=== PATIENT | female | born 1965 | race Caucasian/White ===

== ENCOUNTER 2018-08-08 14:43 | Inpatient (IN) | payer MEDICAID ==
[~2018-08-08] VITALS: Ht 170.2 cm; Wt 103.8 kg
[~2018-08-08 14:43] MED LIST: ALPR-475 PO; AMIT10TA PO; OXYC-302 PO; TIOT18CA INH
[2018-08-08] MEDS ORDERED: ALBUTEROL/IPRATROPIUM 2.5MG/0.5MG, 3 ML NPPB ONE (15:00)
[2018-08-08] MEDS ORDERED: ALBUTEROL/IPRATROPIUM 2.5MG/0.5MG, 3 ML ONE (15:23)
--- NOTE | 2018-08-08 15:30 | NUR ---
PT ON BP CUFF, PULSE OX. MEDS GIVEN PER ERP ORDER. LABS DRAWN. RT AT BS. PT MOANING AND CRYING. PT STATES BREATHING BOTHERS HER THE MOST. PT UPDATED ON POC, IMPORTANCE OF BREATHING SLOWER. PT STATES HX OF ANXIETY AND "SOCIAL SITUATIONS" THAT HAVE BEEN CAUSING INCREASED STRESS. PT MORE CALM FOLLOWING NEB TX, NO MOANING AND CRYING AT THIS TIME. CALL LIGHT WITHIN REACH.
[2018-08-08 15:35] LABS: BASOPHILS # (AUTO) 0.02 x10^3/uL (0-0.1); BASOPHILS % (AUTO) 0 % (0-1); EOSINOPHILS # (AUTO) 0.39 x10^3/uL (0-0.4); EOSINOPHILS % (AUTO) 5 % (1-7); LYMPHOCYTES % (AUTO) 15 % (22-44); MD NO; MEAN CORPUSCULAR HEMOGLOBIN 31.8 pg (27.0-34.8); MEAN CORPUSCULAR VOLUME 93.3 fL (80-100); MONOCYTES # (AUTO) 0.37 x10^3/uL (0.2-0.8); MONOCYTES % (AUTO) 5 % (2-9); NEUTROPHILS # (AUTO) 5.82 x10^3/uL (1.8-6.8); NEUTROPHILS % (AUTO) 75 % (42-75); PLATELET COUNT 150 x10^3/uL (130-400); RED BLOOD COUNT 5.08 x10^6/uL (3.82-5.3); RED CELL DISTRIBUTION WIDTH 13.1 % (9.6-15.2)
[2018-08-08 15:47] LABS: ALBUMIN 3.5 g/dL (3.4-5.0); ANION GAP 6 mmol/L (5-15); CALCIUM 8.6 mg/dL (8.5-10.1); CHLORIDE 106 mmol/L (98-107); CREATININE 0.98 mg/dL (0.55-1.02)
[2018-08-08] MEDS ORDERED: OXYC10TA6 PO (15:59)
[2018-08-08] MEDS ORDERED: ALBU0.63 NEB (15:59)
[2018-08-08] MEDS ORDERED: FLUT1BLS INH (15:59)
[2018-08-08] MEDS ORDERED: ALPR-475 PO (15:59)
[2018-08-08] MEDS ORDERED: SODIUM CHLORIDE FLUSH 10ML SYR IVF ONE (16:00)
[2018-08-08] MEDS ORDERED: hydrALAzine 20 MG/ML, 1ML IVPush PRN (16:30)
[2018-08-08] MEDS ORDERED: ACETAMINOPHEN 325 MG TABLET PO PRN (16:30)
[2018-08-08] MEDS ORDERED: CEFTRIAXONE PMX 1GM/50ML 50 ML IV SCH (16:30)
[2018-08-08] MEDS ORDERED: TIOTROPIUM BROMIDE INH PRN (16:30)
[2018-08-08] MEDS ORDERED: AZITHROMYCIN 500 MG in SODIUM CHLORIDE 0.9% 250 ML IV SCH (16:30)
[2018-08-08] MEDS ORDERED: ENOXAPARIN 40 MG/0.4 ML SQ SCH (16:30)
[2018-08-08] MEDS ORDERED: CEFTRIAXONE PMX 1GM/50ML 50 ML ONE (16:48)
--- NOTE | 2018-08-08 16:58 | NUR ---
IV PLACED WITH US BY SUE MORENO RN. 18 LONG GUAGE TO R UPPER ARM. CALL TO LAB, CONFIRM AT LEAST ONE BC DRAWN BY LAB. 2ND BC DRAWN BY SUE OFF OF IV. ROCEPHIN INFUSING. VS UPDATED IN COMPUTER.
[2018-08-08] MEDS ORDERED: PLEASE ENTER WEIGHT MC SCH (17:30)
[2018-08-08 17:33] VITALS: BP 124/85
[2018-08-08] MEDS: OXYcodone/APAP 5/325MG TABLET PO PRN ×2 (17:46→22:40)
[2018-08-08] MEDS: methylPREDNISolone SOD SUCC 125 MG/2 ML IVPush SCH (18:19)
[2018-08-08] MEDS: GUAIFENESIN 200 MG TABLET PO SCH ×2 (18:19→20:16)
[2018-08-08] MEDS: ENOXAPARIN 40 MG/0.4 ML SQ SCH (18:20)
[2018-08-08 19:23] LABS: TROPONIN I < 0.015 ng/mL (0.000-0.045)
[2018-08-08] MEDS: ALBUTEROL/IPRATROPIUM 2.5MG/0.5MG, 3 ML NPPB SCH ×3 (19:40→23:00)
[2018-08-08 19:55] VITALS: BP 129/88
[2018-08-08] MEDS: BUDESONIDE 0.5 MG/2 ML INHA INH SCH (22:33)
[2018-08-09 00:57] VITALS: BP 137/78
[2018-08-09 01:10] LABS: BASOPHILS # (AUTO) 0.01 x10^3/uL (0-0.1); BASOPHILS % (AUTO) 0 % (0-1); EOSINOPHILS # (AUTO) 0.01 x10^3/uL (0-0.4); EOSINOPHILS % (AUTO) 0 % (1-7); LYMPHOCYTES # (AUTO) 0.33 x10^3/uL (1-3.4); LYMPHOCYTES % (AUTO) 6 % (22-44); MD NO; MEAN CORPUSCULAR HEMOGLOBIN 32.1 pg (27.0-34.8); MEAN CORPUSCULAR VOLUME 94.3 fL (80-100); MEAN PLATELET VOLUME 8.3 fL (7.4-10.4); MONOCYTES # (AUTO) 0.06 x10^3/uL (0.2-0.8); MONOCYTES % (AUTO) 1 % (2-9); NEUTROPHILS # (AUTO) 5.58 x10^3/uL (1.8-6.8); NEUTROPHILS % (AUTO) 93 % (42-75); PLATELET COUNT 119 x10^3/uL (130-400); RED BLOOD COUNT 5.11 x10^6/uL (3.82-5.3); RED CELL DISTRIBUTION WIDTH 12.9 % (9.6-15.2)
[2018-08-09 01:24] LABS: ALANINE AMINOTRANSFERASE 109 U/L (12-78); ALBUMIN 3.4 g/dL (3.4-5.0); ANION GAP 6 mmol/L (5-15); CALCIUM 8.6 mg/dL (8.5-10.1); CHLORIDE 105 mmol/L (98-107); CREATININE 1.04 mg/dL (0.55-1.02)
[2018-08-09 01:26] LABS: ALKALINE PHOSPHATASE 109 U/L (45-117); BILIRUBIN,TOTAL 0.2 mg/dL (0.2-1.0); TOTAL PROTEIN 7.7 g/dL (6.4-8.2)
[2018-08-09 01:38] LABS: TROPONIN I < 0.015 ng/mL (0.000-0.045)
[2018-08-09] MEDS: ALBUTEROL/IPRATROPIUM 2.5MG/0.5MG, 3 ML NPPB SCH ×7 (03:00→22:00)
[2018-08-09 03:20] LABS: RAPID INFLUENZA A Negative (Negative); RAPID INFLUENZA B Negative (Negative)
[2018-08-09] MEDS: methylPREDNISolone SOD SUCC 125 MG/2 ML IVPush SCH ×4 (03:55→21:15)
[2018-08-09] MEDS: OXYcodone/APAP 5/325MG TABLET PO PRN ×4 (03:57→21:15)
[2018-08-09 04:01] VITALS: BP 129/88
[2018-08-09] MEDS: GUAIFENESIN 200 MG TABLET PO SCH ×4 (06:49→21:15)
[2018-08-09 07:24] VITALS: BP 131/76
[2018-08-09] MEDS: BUDESONIDE 0.5 MG/2 ML INHA INH SCH ×2 (09:00→21:00)
[2018-08-09] MEDS: SODIUM CHLORIDE 0.9% 1,000 ML IV SCH (13:12)
[2018-08-09 13:20] VITALS: BP 140/86
[2018-08-09] MEDS: LINEZOLID PMX 600MG/300ML 300 ML IV SCH (13:58)
[2018-08-09] MEDS ORDERED: CEFTRIAXONE PMX 1GM/50ML 50 ML IV SCH (16:30)
[2018-08-09 16:49] LABS: MICROSCOPIC NOT IND
[2018-08-09] MEDS: ENOXAPARIN 40 MG/0.4 ML SQ SCH (17:36)
[2018-08-09 18:47] VITALS: BP 145/84
[2018-08-09] MEDS ORDERED: AMOXICILLIN/CLAV 875-125MG TABLET PO SCH (21:00)
[2018-08-10 00:45] VITALS: BP 132/86
[2018-08-10] MEDS: OXYcodone/APAP 5/325MG TABLET PO PRN ×4 (01:03→16:23)
[2018-08-10] MEDS: ONDANSETRON 2MG/ML, 2ML IVPush PRN (01:26)
[2018-08-10] MEDS: LINEZOLID PMX 600MG/300ML 300 ML IV SCH ×2 (01:43→13:48)
[2018-08-10] MEDS: methylPREDNISolone SOD SUCC 125 MG/2 ML IVPush SCH ×4 (03:36→22:09)
[2018-08-10 05:49] LABS: MEAN CORPUSCULAR HEMOGLOBIN 32.2 pg (27.0-34.8); MEAN CORPUSCULAR HGB CONC 33.7 g/dL (32.4-35.8); MEAN CORPUSCULAR VOLUME 95.5 fL (80-100); MEAN PLATELET VOLUME 8.2 fL (7.4-10.4); PLATELET COUNT 158 x10^3/uL (130-400); RED BLOOD COUNT 4.66 x10^6/uL (3.82-5.3); RED CELL DISTRIBUTION WIDTH 13.1 % (9.6-15.2)
[2018-08-10 05:51] LABS: ALBUMIN 3.3 g/dL (3.4-5.0); ANION GAP 3 mmol/L (5-15); CALCIUM 8.7 mg/dL (8.5-10.1); CHLORIDE 104 mmol/L (98-107)
[2018-08-10 05:54] LABS: ALANINE AMINOTRANSFERASE 87 U/L (12-78); ALKALINE PHOSPHATASE 110 U/L (45-117); BILIRUBIN,TOTAL 0.2 mg/dL (0.2-1.0); TOTAL PROTEIN 7.3 g/dL (6.4-8.2)
[2018-08-10] MEDS: ALBUTEROL/IPRATROPIUM 2.5MG/0.5MG, 3 ML NPPB SCH ×5 (06:00→22:45)
[2018-08-10 06:23] LABS: MD YES
[2018-08-10 06:25] LABS: BAND#(MANUAL) 2.44 x10^3/uL; BANDS%(MANUAL) 10 % (0-7); LYMPH#(MANUAL) 0.24 x10^3/uL (1-3.4); LYMPHS% (MANUAL) 1 % (22-44); SEG#(MANUAL) 21.72 x10^3/uL (1.8-6.8); SEGS% (MANUAL) 89 % (42-75)
[2018-08-10 06:26] LABS: <PLATELET ESTIMATE> ADEQUATE; <PLT MORPHOLOGY> NORMAL PLT MORPH; <RBC MORPHOLOGY> NORMAL
[2018-08-10] MEDS: GUAIFENESIN 200 MG TABLET PO SCH ×4 (06:41→21:26)
[2018-08-10 06:51] VITALS: BP 123/84
[2018-08-10] MEDS: AZITHROMYCIN 500 MG TABLET PO SCH (08:45)
[2018-08-10] MEDS: SODIUM CHLORIDE 0.9% 1,000 ML IV SCH ×2 (08:46→21:26)
[2018-08-10] MEDS: BUDESONIDE 0.5 MG/2 ML INHA INH SCH ×2 (09:00→18:15)
[2018-08-10] MEDS ORDERED: MAALOX/HYOSCYAMINE/LIDOCAINE 45 ML BTL PO PRN (10:00)
[2018-08-10 13:46] VITALS: BP 103/69
[2018-08-10] MEDS: INSULIN LISPRO 100 UNITS/ML, PEN SQ-INSULIN SCH ×2 (16:57→21:27)
[2018-08-10] MEDS: ENOXAPARIN 40 MG/0.4 ML SQ SCH (18:35)
[2018-08-10 18:44] VITALS: BP 143/78
[2018-08-11] MEDS: LINEZOLID PMX 600MG/300ML 300 ML IV SCH ×2 (01:27→13:27)
[2018-08-11] MEDS: OXYcodone/APAP 5/325MG TABLET PO PRN ×2 (01:31→08:21)
[2018-08-11 01:34] VITALS: BP 143/92
[2018-08-11] MEDS: methylPREDNISolone SOD SUCC 125 MG/2 ML IVPush SCH ×4 (04:15→23:09)
[2018-08-11] MEDS: ALBUTEROL/IPRATROPIUM 2.5MG/0.5MG, 3 ML NPPB SCH ×5 (06:37→18:29)
[2018-08-11] MEDS: BUDESONIDE 0.5 MG/2 ML INHA INH SCH ×2 (06:37→18:28)
[2018-08-11] MEDS: GUAIFENESIN 200 MG TABLET PO SCH ×4 (06:45→20:09)
[2018-08-11 07:10] VITALS: BP 151/88
[2018-08-11 07:38] VITALS: BP 112/67
[2018-08-11] MEDS: AZITHROMYCIN 500 MG TABLET PO SCH (08:12)
[2018-08-11] MEDS: INSULIN LISPRO 100 UNITS/ML, PEN SQ-INSULIN SCH ×4 (08:12→20:05)
[2018-08-11] MEDS: INSULIN GLARGINE 100 UNITS/ML, PEN SQ-INSULIN SCH ×2 (09:47→20:21)
--- NOTE | 2018-08-11 10:03 | NUR ---
REC: Pureed diet with NTL except ice chips PRN Addendum: 08/11/18 at 1003 by Fany GUERRERO Amended: Links added.
[2018-08-11 10:23] LABS: ALBUMIN 3.2 g/dL (3.4-5.0); ANION GAP 4 mmol/L (5-15); CHLORIDE 102 mmol/L (98-107)
[2018-08-11 10:27] LABS: ALANINE AMINOTRANSFERASE 75 U/L (12-78); ALKALINE PHOSPHATASE 104 U/L (45-117); BILIRUBIN,TOTAL 0.2 mg/dL (0.2-1.0); CREATININE 0.93 mg/dL (0.55-1.02); MEAN CORPUSCULAR HEMOGLOBIN 31.3 pg (27.0-34.8); MEAN CORPUSCULAR HGB CONC 32.4 g/dL (32.4-35.8); MEAN CORPUSCULAR VOLUME 96.7 fL (80-100); PLATELET COUNT 161 x10^3/uL (130-400); RED BLOOD COUNT 4.41 x10^6/uL (3.82-5.3); RED CELL DISTRIBUTION WIDTH 13.8 % (9.6-15.2)
[2018-08-11 10:37] LABS: HEMOGLOBIN A1C 6.1 % (4.2-6.3)
[2018-08-11 10:48] LABS: MD YES
[2018-08-11 10:51] LABS: <PLATELET ESTIMATE> ADEQUATE; <PLT MORPHOLOGY> NORMAL PLT MORPH; <RBC MORPHOLOGY> NORMAL; BAND#(MANUAL) 0.18 x10^3/uL; BANDS%(MANUAL) 1 % (0-7); LYMPH#(MANUAL) 0.92 x10^3/uL (1-3.4); LYMPHS% (MANUAL) 5 % (22-44); MONOS#(MANUAL) 0.18 x10^3/uL (0.3-2.7); MONOS% (MANUAL) 1 % (2-9); SEG#(MANUAL) 17.11 x10^3/uL (1.8-6.8); SEGS% (MANUAL) 93 % (42-75)
[2018-08-11] MEDS: ONDANSETRON 2MG/ML, 2ML IVPush PRN (13:27)
[2018-08-11] MEDS ORDERED: OMNIPAQUE 350 MG/ML, 75ML BOTTLE ONE (14:33)
[2018-08-11 15:45] VITALS: BP 145/91
[2018-08-11] MEDS ORDERED: SODIUM POLYSTYRENE SULFONATE ORAL SUSP PO ONE (16:30)
[2018-08-11] MEDS: ENOXAPARIN 40 MG/0.4 ML SQ SCH (17:18)
[2018-08-11] MEDS: morphine SULFATE 10 MG/ML, 1ML IVPush PRN ×2 (17:22→20:35)
[2018-08-11 20:22] LABS: ANION GAP 1 mmol/L (5-15); CALCIUM 8.4 mg/dL (8.5-10.1); CHLORIDE 102 mmol/L (98-107); CREATININE 0.98 mg/dL (0.55-1.02)
[2018-08-12] MEDS: LINEZOLID PMX 600MG/300ML 300 ML IV SCH (02:19)
[2018-08-12] MEDS: morphine SULFATE 10 MG/ML, 1ML IVPush PRN ×4 (02:29→23:00)
[2018-08-12] MEDS: methylPREDNISolone SOD SUCC 125 MG/2 ML IVPush SCH ×3 (04:58→20:00)
[2018-08-12] MEDS: ALBUTEROL/IPRATROPIUM 2.5MG/0.5MG, 3 ML NPPB SCH ×4 (06:00→20:13)
[2018-08-12] MEDS: GUAIFENESIN 200 MG TABLET PO SCH ×4 (06:18→19:59)
[2018-08-12] MEDS: INSULIN GLARGINE 100 UNITS/ML, PEN SQ-INSULIN SCH ×2 (07:41→21:28)
[2018-08-12] MEDS: INSULIN LISPRO 100 UNITS/ML, PEN SQ-INSULIN SCH ×4 (07:41→21:28)
[2018-08-12] MEDS: CEFTRIAXONE PMX 1GM/50ML 50 ML IV SCH (07:44)
--- NOTE | 2018-08-12 09:15 | NUR ---
RECOMMENDATIONS: Regular/ Thins -Up for all meals -Slow rate orange sheet posted Addendum: 08/12/18 at [address] Amended: Links added.
[2018-08-12] MEDS ORDERED: FLUTICASONE/VILANTEROL 100-25MCG/INH INH SCH (10:00)
[2018-08-12] MEDS: BUDESONIDE 0.5 MG/2 ML INHA INH SCH ×2 (10:15→20:13)
[2018-08-12] MEDS: ALBUTEROL SULFATE 2.5 MG/3 ML NPPB PRN (17:00)
[2018-08-12 17:53] VITALS: BP 148/82
[2018-08-12] MEDS: ENOXAPARIN 40 MG/0.4 ML SQ SCH (17:57)
[2018-08-12 19:41] VITALS: BP 175/103
[2018-08-12 20:40] VITALS: BP 185/93
[2018-08-12] MEDS: NICOTINE 21 MG/24 HR PATCH.TD24 TD SCH (22:30)
[2018-08-13 01:47] VITALS: BP 148/86
[2018-08-13] MEDS: morphine SULFATE 10 MG/ML, 1ML IVPush PRN ×5 (02:01→23:52)
[2018-08-13] MEDS: ALBUTEROL/IPRATROPIUM 2.5MG/0.5MG, 3 ML NPPB SCH ×5 (03:13→18:30)
[2018-08-13] MEDS: methylPREDNISolone SOD SUCC 125 MG/2 ML IVPush SCH ×4 (05:34→23:52)
[2018-08-13] MEDS: GUAIFENESIN 200 MG TABLET PO SCH ×4 (05:34→19:53)
[2018-08-13 06:57] VITALS: BP 156/92
[2018-08-13] MEDS: BUDESONIDE 0.5 MG/2 ML INHA INH SCH (07:11)
[2018-08-13 07:17] LABS: MEAN CORPUSCULAR HEMOGLOBIN 30.7 pg (27.0-34.8); MEAN CORPUSCULAR HGB CONC 32.2 g/dL (32.4-35.8); MEAN CORPUSCULAR VOLUME 95.1 fL (80-100); MEAN PLATELET VOLUME 7.6 fL (7.4-10.4); PLATELET COUNT 163 x10^3/uL (130-400); RED BLOOD COUNT 4.58 x10^6/uL (3.82-5.3); RED CELL DISTRIBUTION WIDTH 13.3 % (9.6-15.2)
[2018-08-13 07:28] LABS: ANION GAP 4 mmol/L (5-15); CALCIUM 8.7 mg/dL (8.5-10.1); CHLORIDE 97 mmol/L (98-107); CREATININE 0.77 mg/dL (0.55-1.02)
[2018-08-13] MEDS: CEFTRIAXONE PMX 1GM/50ML 50 ML IV SCH (07:33)
[2018-08-13 07:41] LABS: BASOPHILS # (AUTO) 0.05 x10^3/uL (0-0.1); BASOPHILS % (AUTO) 1 % (0-1); EOSINOPHILS % (AUTO) 0 % (1-7); LYMPHOCYTES # (AUTO) 0.54 x10^3/uL (1-3.4); LYMPHOCYTES % (AUTO) 6 % (22-44); MD SCAN; MONOCYTES # (AUTO) 0.33 x10^3/uL (0.2-0.8); MONOCYTES % (AUTO) 4 % (2-9); NEUTROPHILS # (AUTO) 8.44 x10^3/uL (1.8-6.8); NEUTROPHILS % (AUTO) 90 % (42-75)
[2018-08-13] MEDS: INSULIN LISPRO 100 UNITS/ML, PEN SQ-INSULIN SCH ×4 (08:02→19:52)
[2018-08-13] MEDS: INSULIN GLARGINE 100 UNITS/ML, PEN SQ-INSULIN SCH ×2 (08:03→19:53)
[2018-08-13] MEDS ORDERED: FLUTICASONE/VILANTEROL 200-25MCG/INH INH ONE (10:51)
[2018-08-13] MEDS ORDERED: FUROSEMIDE 20 MG/2 ML IV ONE (11:00)
[2018-08-13] MEDS: FLUTICASONE/VILANTEROL 200-25MCG/INH INH SCH (12:01)
[2018-08-13 13:18] VITALS: BP 156/92
[2018-08-13] MEDS: FUROSEMIDE 20 MG/2 ML IV SCH (17:06)
[2018-08-13] MEDS: ENOXAPARIN 40 MG/0.4 ML SQ SCH (17:06)
[2018-08-13 19:20] VITALS: BP 151/80
[2018-08-13] MEDS: NICOTINE 21 MG/24 HR PATCH.TD24 TD SCH (22:34)
[2018-08-13] MEDS: ALBUTEROL SULFATE 2.5 MG/3 ML NPPB PRN (22:53)
[2018-08-14 01:27] VITALS: BP 165/100
[2018-08-14] MEDS: morphine SULFATE 10 MG/ML, 1ML IVPush PRN ×4 (04:53→22:19)
[2018-08-14] MEDS: methylPREDNISolone SOD SUCC 125 MG/2 ML IVPush SCH ×2 (04:53→05:00)
[2018-08-14] MEDS: GUAIFENESIN 200 MG TABLET PO SCH ×4 (04:54→19:46)
[2018-08-14] MEDS: ALBUTEROL/IPRATROPIUM 2.5MG/0.5MG, 3 ML NPPB SCH ×4 (05:15→20:37)
[2018-08-14] MEDS: INSULIN LISPRO 100 UNITS/ML, PEN SQ-INSULIN SCH ×4 (07:46→19:47)
[2018-08-14] MEDS: INSULIN GLARGINE 100 UNITS/ML, PEN SQ-INSULIN SCH ×2 (07:47→19:47)
[2018-08-14] MEDS: FUROSEMIDE 20 MG/2 ML IV SCH ×2 (08:58→16:43)
[2018-08-14] MEDS: CEFTRIAXONE PMX 1GM/50ML 50 ML IV SCH (08:59)
[2018-08-14] MEDS: FLUTICASONE/VILANTEROL 200-25MCG/INH INH SCH (08:59)
[2018-08-14 09:29] VITALS: BP 149/96
[2018-08-14 14:11] VITALS: BP 138/95
[2018-08-14] MEDS: ENOXAPARIN 40 MG/0.4 ML SQ SCH (16:45)
[2018-08-14 19:19] VITALS: BP 156/92
[2018-08-14] MEDS: NICOTINE 21 MG/24 HR PATCH.TD24 TD SCH (22:19)
[2018-08-15 00:36] VITALS: BP 164/115
[2018-08-15 06:50] VITALS: BP 161/109
[2018-08-15] MEDS: ALBUTEROL/IPRATROPIUM 2.5MG/0.5MG, 3 ML NPPB SCH ×4 (07:25→16:25)
[2018-08-15] MEDS: FLUTICASONE/VILANTEROL 200-25MCG/INH INH SCH (09:33)
[2018-08-15] MEDS: GUAIFENESIN 200 MG TABLET PO SCH ×3 (09:33→16:21)
[2018-08-15] MEDS: CEFTRIAXONE PMX 1GM/50ML 50 ML IV SCH (09:33)
[2018-08-15] MEDS: FUROSEMIDE 20 MG/2 ML IV SCH (09:34)
[2018-08-15] MEDS: morphine SULFATE 10 MG/ML, 1ML IVPush PRN (09:35)
[2018-08-15] MEDS: INSULIN LISPRO 100 UNITS/ML, PEN SQ-INSULIN SCH ×3 (09:48→16:28)
[2018-08-15] MEDS: INSULIN GLARGINE 100 UNITS/ML, PEN SQ-INSULIN SCH (09:48)
[2018-08-15] MEDS ORDERED: IPRA3AMP30 INH (10:13)
[2018-08-15] MEDS ORDERED: AZIT500T PO (10:13)
[2018-08-15] MEDS ORDERED: NICO-487 TD (10:13)
[2018-08-15] MEDS ORDERED: CEFD300C37 PO (10:13)
[2018-08-15] MEDS ORDERED: PRED10TA PO (10:13)
[2018-08-15] MEDS ORDERED: INSU100I13 SQ-INSULIN (10:13)
[2018-08-15] MEDS ORDERED: Maalox/Hyoscyamine/Lidocaine PO (10:23)
[2018-08-15] MEDS ORDERED: GLIM4TAB PO (11:37)
[2018-08-15] MEDS ORDERED: ONDA4TAB13 SL (11:37)
[2018-08-15 13:40] VITALS: BP 149/88
== END 2018-08-15 18:30 | disposition left against medical advice (07) | DRG 682 ==
LOC: ED 15:47 → EDIP 15:48 → ED 16:11 → 4NOR 17:15 → CCU 08-11 16:20 → 3NW 08-12 17:38
PROVIDERS: ADMIT Internal Medicine; ATTEND Internal Medicine
PROC: 5A09357 Assistance with Respiratory Ventilation, Less than 24 Consecutive Hours, Continuous Positive Airway Pressure (ICD-10-PCS; principal; 2018-08-11)
DX: N17.0 Acute kidney failure with tubular necrosis (principal); J15.3 Pneumonia due to streptococcus, group B; J96.21 Acute and chronic respiratory failure with hypoxia; E87.2 Acidosis; J44.0 Chronic obstructive pulmonary disease with (acute) lower respiratory infection; Z53.21 Procedure and treatment not carried out due to patient leaving prior to being seen by health care provider; J44.1 Chronic obstructive pulmonary disease with (acute) exacerbation; J45.901 Unspecified asthma with (acute) exacerbation; E09.65 Drug or chemical induced diabetes mellitus with hyperglycemia; E66.9 Obesity, unspecified; Z68.35 Body mass index [BMI] 35.0-35.9, adult; B19.20 Unspecified viral hepatitis C without hepatic coma; E87.5 Hyperkalemia; F41.9 Anxiety disorder, unspecified; I10 Essential (primary) hypertension; M06.9 Rheumatoid arthritis, unspecified; T38.0X5A Adverse effect of glucocorticoids and synthetic analogues, initial encounter; Z87.891 Personal history of nicotine dependence
CPT/HCPCS: 36415; 36600; 87400; 99291; J7613; J7620; J7626; 71045; 71260; 80048; 80053; 81003; 82040; 82803; 82962; 83036; 83605; 83735; 84132; 84484; 85025; 85379; 87040; 87070; 87081; 87147; 87205; 93005; 94640; 94660; 96365; G0378; J0456; J0696; J1650; J2020; J2405; Q9967; J0360; J1815; J1940; J2270; J2930; J7030; J7050; J7512

== ENCOUNTER 2018-08-24 00:40 | Emergency (ER) | payer MEDICAID ==
[~2018-08-24] VITALS: Ht 170.2 cm; Wt 99.4 kg
[~2018-08-24 00:40] MED LIST changes: +ALBU0.63 NEB; +AZIT500T PO; +CEFD300C37 PO; +FLUT1BLS INH; +GLIM4TAB PO; +INSU100I13 SQ-INSULIN; +IPRA3AMP30 INH; +Maalox/Hyoscyamine/Lidocaine PO; +NICO-487 TD; +ONDA4TAB13 SL; +OXYC10TA6 PO; +PRED10TA PO
[2018-08-24 00:45] VITALS: BP 127/80
--- NOTE | 2018-08-24 01:23 | NUR ---
PT NIL X3, SEEN LEAVING BY REGISTRATION
== END 2018-08-24 01:35 | disposition left against medical advice (07) ==
LOC: ED 01:29
DX: R51 Headache (principal); Z53.21 Procedure and treatment not carried out due to patient leaving prior to being seen by health care provider

== ENCOUNTER 2020-02-08 13:43 | Emergency (ER) | payer MEDICAID ==
[~2020-02-08] VITALS: Ht 170.2 cm; Wt 114.0 kg
[~2020-02-08 13:43] MED LIST changes: -ALPR-475 PO; +ALPR0.5T7 PO
[2020-02-08] MEDS ORDERED: MORPHINE SULFATE 4 MG/ML, 1ML ONE (14:01)
[2020-02-08] MEDS ORDERED: ONDANSETRON 2MG/ML, 2ML ONE (14:01)
[2020-02-08] MEDS ORDERED: ONDANSETRON 2MG/ML, 2ML IVPush ONE (14:30)
[2020-02-08] MEDS ORDERED: SODIUM CHLORIDE 0.9% 1,000ML IVBOLUS ONE (14:30)
[2020-02-08] MEDS ORDERED: MORPHINE SULFATE 4 MG/ML, 1ML IVPush PRN (14:30)
--- NOTE | 2020-02-08 14:30 | NUR ---
PT HAD NV WITH LARGE AMT EMESIS & INCONT OF URINE, PUREWICK PLACED FOR UA SAMPLE.
--- NOTE | 2020-02-08 15:05 | NUR ---
PT SLEEPING ON GURNEY, NAD WITH EQUAL CHEST RISE/FALL, NO NEEDS AT THIS TIME, CALL LIGHT WITHIN REACH.
[2020-02-08 15:13] LABS: ALANINE AMINOTRANSFERASE 69 U/L (12-78); ALBUMIN 3.1 g/dL (3.4-5.0); ANION GAP 6 mmol/L (5-15); CALCIUM 7.3 mg/dL (8.5-10.1); CHLORIDE 109 mmol/L (98-107)
[2020-02-08] MEDS ORDERED: ACETAMINOPHEN 500 MG TABLET ONE (15:14)
[2020-02-08 15:15] LABS: ALKALINE PHOSPHATASE 106 U/L (45-117); BILIRUBIN,TOTAL 0.8 mg/dL (0.2-1.0); TOTAL PROTEIN 6.6 g/dL (6.4-8.2)
--- NOTE | 2020-02-08 15:19 | NUR ---
OK TO HOLD TYLENOL D/T PT NV PER DR SMITH Addendum: 02/08/20 at 1523 by LUPE Amendment undone in EDM - 02/08/20 at 1526 by LUPE OK TO HOLD TYLENOL D/T PT NV PER DR SMITH; STILL AWAITING UA SAMPLE [employer]IA [employer]. Addendum: 02/08/20 at 1526 by LUPE OK TO HOLD TYLENOL D/T PT NV PER DR SMITH; STILL AWAITING UA SAMPLE VIA PUREWICK- DR SMITH AWARE.
[2020-02-08] MEDS ORDERED: LORazepam 2 MG/ML, 1ML ONE (15:28)
[2020-02-08] MEDS ORDERED: ACETAMINOPHEN 500 MG TABLET PO ONE (15:30)
[2020-02-08] MEDS ORDERED: LORazepam 2 MG/ML, 1ML IVPush ONE (15:30)
--- NOTE | 2020-02-08 15:35 | NUR ---
PT TO CT
[2020-02-08] MEDS ORDERED: OMNIPAQUE 350 MG/ML, 100ML BOTTLE ONE (15:55)
--- NOTE | 2020-02-08 16:01 | NUR ---
PT RETURNED FROM CT, PUREWICK REMAINS IN PLACE, STILL AWAITING UA SAMPLE.
--- NOTE | 2020-02-08 16:02 | NUR ---
NAD WHILE PT CALMLY SLEEPING ON GURNEY BUT C/O ABD PAIN WHEN AWAKENED, RESPONDS TO STAFF, COMFORT MEASURES PROVIDED, CALL LIGHT WITHIN REACH.
[2020-02-08 16:24] LABS: MEAN CORPUSCULAR HEMOGLOBIN 31.6 pg (27.0-34.8); MEAN CORPUSCULAR HGB CONC 33.7 g/dL (32.4-35.8); MEAN CORPUSCULAR VOLUME 93.8 fL (80-100); MEAN PLATELET VOLUME 8.3 fL (7.4-10.4); PLATELET COUNT 112 x10^3/uL (130-400); RED BLOOD COUNT 4.67 x10^6/uL (3.82-5.3); RED CELL DISTRIBUTION WIDTH 13.4 % (9.6-15.2)
[2020-02-08 16:25] LABS: MD YES
[2020-02-08 16:44] LABS: BAND#(MANUAL) 1.12 x10^3/uL; BANDS%(MANUAL) 17 % (0-7); LYMPHS% (MANUAL) 3 % (22-44); MONOS% (MANUAL) 3 % (2-9); SEG#(MANUAL) 5.08 x10^3/uL (1.8-6.8); SEGS% (MANUAL) 77 % (42-75)
[2020-02-08 16:47] LABS: <PLATELET ESTIMATE> DECREASED; <PLT MORPHOLOGY> NORMAL PLT MORPH; <RBC MORPHOLOGY> NORMAL
[2020-02-08 16:57] VITALS: BP 116/61
--- NOTE | 2020-02-08 17:00 | NUR ---
PT REFUSED STRAIGHT CATH BUT UNABLE TO PROVIDED URINE VIA BR VOID, PT UNSTEADY TO BR, BACK TO [facility] WITH SPO2 @80%RA- WNL ON 2L/NC, DR SMITH AWARE, PT VERY DROWSY BUT RESPONDS APPROP TO STAFF, COMFORT MEASURES PROVIDED, VISITOR AT BS, CALL LIGHT WITHIN REACH.
[2020-02-08] MEDS ORDERED: FURO-93 PO (17:16)
[2020-02-08] MEDS ORDERED: CEFTRIAXONE PMX 1GM/50ML 50 ML IVPB ONE (18:00)
--- NOTE | 2020-02-08 18:53 | NUR ---
PT REFUSED BLOOD CULTURES & ABX VIA PIV AND IM, THIS RN EDUC PT ON IMPORTANCE OF DIAGNOSTIC STUDIES EVEN WHEN ORDERED HRS AFTER ARRIVAL, PT BEGAN YELLING "I DON'T CARE, WHY CAN'T YOU GUYS USE THE BLOOD THE OTHER ELDON TOOK THE FIRST TIME?! FORGET IT! I JUST WANT TO GO HOME! JUST TAKE ALL SHIT OFF & CALL ME A TAXI! I PAY FOR IT MYSELF! I DON'T WANT ANYTHING FROM YOU GUYS, I'LL SEE MY OWN DOCTOR TOMORROW!", DR SMITH AWARE OF AMA- PT SIGNED AMA FORM BUT REFUSED TO SIGN DC INSTRUCTION OR TAKE ANY PAPERWORK/RX WITH HER. PT GIVEN HER OWN SHIRT & SCRUB PANTS UPON DC. PT REFUSED TO REMOVE GOWN OR ID BAND & AMBULATED TO EXIT STATING "I'M WALKING DOWN [facility] SO EVERYONE CAN SEE HOW YOU TREAT PEOPLE!" PT FLIPPED THE STAFF OFF SHE EXITED.
== END 2020-02-08 19:05 | disposition left against medical advice (07) ==
LOC: ED 17:03
DX: R10.84 Generalized abdominal pain (principal); R50.9 Fever, unspecified; R09.02 Hypoxemia; D72.825 Bandemia; R11.2 Nausea with vomiting, unspecified; I10 Essential (primary) hypertension; J44.9 Chronic obstructive pulmonary disease, unspecified
CPT/HCPCS: 36415; 71045; 74177; 80053; 83690; 85025; 93005; 96361; 96374; 96375; 99285; J2060; J2270; J2405; J7030; Q9967